=== PATIENT | female | born 1980 | race African-American/Black ===

== ENCOUNTER 2016-05-06 07:49 | Emergency (ER) | payer OTHER ==
[~2016-05-06] VITALS: Ht 157.5 cm; Wt 119.7 kg
[~2016-05-06 07:49] MED LIST: METFORMIN1000 MG PO; METFORMIN500 MG PO; MOTRIN 800MG T800 MG PO; NOVOLIN-N1000 UNITS IJ; PRENATAL1 TA2 PO
[2016-05-06] MEDS ORDERED: VITAMIN D250000 UNIT PO (09:05)
[2016-05-06] MEDS ORDERED: LIDOCAINE1 EACH TOP (09:05)
[2016-05-06] MEDS ORDERED: FERRALET 90 TA1 EACH PO (09:05)
[2016-05-06] MEDS ORDERED: AMOX-CLAV 500-1 EACH PO (09:05)
[2016-05-06] MEDS ORDERED: VOLTAREN100 GM TOP (09:06)
--- NOTE | 2016-05-06 09:20 | ED UPPER/LOWER EXTREMITY COMPL ---
History of Present Illness General Chief Complaint: Hand or Wrist Injury Stated Complaint: RT WRIST PAIN Source: patient Exam Limitations: no limitations Vital Signs & Intake/Output Vital Signs & Intake/Output Vital Signs Date Time Temp Pulse Resp B/P Pulse O2 O2 Flow FiO2 Ox Delivery Rate 05/06 1136 98.2 72 17 150/88 100 Room Air 05/06 0846 98.4 77 18 153/106 99 Room Air Allergies Coded Allergies: NO KNOWN ALLERGIES (05/06/16) Reconcile Medications Amoxicillin/Potassium Clav (Amox-Clav 500-125 MG Tablet) 500 MG-125 MG TABLET 1 TAB PO BID DENTAL (Reported) Diclofenac Sodium (Voltaren) 1 % GEL..GRAM. 1 GM TOP 4 TIMES/DAY PRN KNEE PAIN (Reported) apply to affected area(s) Ergocalciferol (Vitamin D2) (Vitamin D2) 50,000 UNIT CAPSULE 1 CAP PO QW SUPPLEMENT (Reported) Ibuprofen 600 MG TABLET 1 TAB PO TID PRN pain with food Iron Carb,Gl/FA/B12/C/Docusate (Ferralet 90 Tablet) 90 MG-1 MG-12 MCG-120 MG-50 MG TABLET 1 TAB PO DAILY SUPPLEMENT (Reported) Lidocaine 5 % ADH..PATCH 1 PAT TOP DAILY NEEDED PAIN (Reported) METFORMIN HCL (Metformin) 500 MG TAB 500 MG PO 1/2H BEFOR/BREAKFAST DIABETES (Reported) Tramadol HCl/Acetaminophen (Ultracet Tablet) 37.5 MG-325 MG TABLET 1 TAB PO TIDPRN PRN pain Yibuprofen (Motrin 800MG Tab) 800 MG TAB 800 MG PO Q6P PRN PAIN SCALE 4-6 Triage Note: C/O R WRIST PAIN SINCE YESTERDAY, STATES SHE BANGED IT ON A WOODEN DOOR. PAIN UNRELIEVED WITH MOTRIN OR ICE. Triage Nurses Notes Reviewed? yes : No Patient currently breastfeeds: No HPI: R HAND AND WRIST INJURY, STRUCK DOOR LAST NIGTH HER BOYFRIEND WAS FALLING, PAIN IN THE HAND AND WRIST, WORSE WITH EXTENSION AND PAIN WITH ROM OF THE 4,5 DIGITS. PAIN IS DORSUM. NO SWELLING, TOOK IBUPROFEN AND ICED WITHOUT RELIEF. NO OTHER INJURIES, NO PREVIOUS INJURY, SHE IS RHD. (JOSSIE HAZEL) Past History Travel History Traveled to [place] past 21 day No Medical History Any Pertinent Medical History? see below for history Endocrine: diabetes Surgical History Surgical History: non-contributory Psychosocial History What is your primary language Frisian Tobacco Use: Never used ETOH Use: occasional use Family History Hx Contributory? No (JOSSIE HAZEL) Review of Systems Review of Systems Constitutional: Reports: see HPI. EENTM: Reports: no symptoms. Respiratory: Reports: no symptoms. Cardiovascular: Reports: no symptoms. Gastrointestinal/Abdominal: Reports: no symptoms. Genitourinary: Reports: no symptoms. Musculoskeletal: Reports: see HPI. Skin: Reports: no symptoms. Neurological/Psychological: Reports: no symptoms. Hematologic/Endocrine: Reports: no symptoms. Immunological: Reports: no symptoms. All Other Systems: Reviewed and Negative (JOSSIE HAZEL) Physical Exam Physical Exam General Appearance: well developed/nourished Comments: Well-developed well-nourished no apparent distress. HEENT: Atraumatic, extraocular motion intact Neck: Supple, no lymphadenopathy Back: Nontender Respiratory: No respiratory distress Extremities: No edema, full range of motion Neuro: Alert and oriented x3 Psych: Mood affect normal, normal memory normal judgment. Skin: Warm and dry, no rash on exposed skin Right upper extremity, right hand and wrist, no swelling no ecchymosis, range of motion is limited secondary to pain in the wrist and pronation and supination. She has tenderness over the radial styloid region and TFCC region. There is no clicking. No snuffbox tenderness. No hand or finger tenderness. (JOSSIE HAZEL) Progress Differential Diagnosis: arterial insufficiency, cellulitis, CHF, compartment syndrome, contusion, dislocation, DVT, fracture, gout, septic arthritis, sprain, tendon injury Plan of Care: Orders Procedure Date/time Status Durable Medical Equipment 05/06 1026 Active Diagnostic Imaging: Viewed by Me: Radiology Read. Discussed w/RAD: Radiology Read. Comments: PATIENT: PHU TAYLOR PRESENT AGE: 35 PATIENT ACCOUNT NO: [id number] : 81 LOCATION: [facility] ORDERING PHYSICIAN: JOSSIE GOOD SERVICE DATE: 05/06/16 EXAM TYPE: RAD - XRY-WRIST COMPLETE-RIGHT EXAMINATION: XR WRIST, RIGHT CLINICAL INFORMATION: Pain after injury. COMPARISON: None TECHNIQUE: AP, lateral, and oblique views of the right wrist. FINDINGS: The bones and soft tissues are normal. No fracture. Alignment is anatomic with normal joint spaces. No erosions or abnormal soft tissue calcifications. IMPRESSION: No acute fracture or dislocation right wrist. Especially there is no ulnar styloid process fractures seen. DICTATED BY: MAREK OLEA MD DATE/TIME DICTATED:05/06/161006 INDIRECT FIRE INFANTRYMAN:LIONEL X-rays unremarkable we'll place patient in a cock-up splint for comfort, likely wrist sprain. NSAIDs and pain medication provided and orthopedic follow-up if no better in one to 2 weeks. (JOSSIE HAZEL) Departure Departure Disposition: HOME OR SELF CARE Condition: Stable Clinical Impression Primary Impression: Right wrist sprain Qualifiers: Encounter type: initial encounter Qualified Code: S63.501A - Unspecified sprain of right wrist, initial encounter Referrals: [facility] (PCP/Family) TANA AGUILAR MD Additional Instructions: Rest, ice, use splint for comfort Motrin and ultram as needed for pain. Gradual return to activity as tolerated. Follow-up with orthopedist in one to 2 weeks if no better. Departure Forms: Customer Survey General Discharge Information Prescriptions: Current Visit Scripts Tramadol HCl/Acetaminophen (Ultracet Tablet) 1 TAB PO TIDPRN PRN pain #10 TAB Ibuprofen 1 TAB PO TID PRN pain #30 TAB with food (JOSSIE HAZEL) PA/IC DESIGN MANAGER Co-Sign Statement Statement: ED Attending supervision documentation- [] I saw and evaluated the patient. I have also reviewed all the pertinent lab results and diagnostic results. I agree with the findings and the plan of care as documented in the PA's/IC DESIGN MANAGER's documentation. x I have reviewed the ED Record and agree with the PA's/IC DESIGN MANAGER's documentation. [] Additions or exceptions (if any) to the PAs/IC DESIGN MANAGER's note and plan are summarized below: [] (DOMINICK REDDY,ALEX)
--- NOTE | 2016-05-06 10:11 | RADIOLOGY REPORT ---
EXAMINATION: XR WRIST, RIGHT CLINICAL INFORMATION: Pain after injury. COMPARISON: None TECHNIQUE: AP, lateral, and oblique views of the right wrist. FINDINGS: The bones and soft tissues are normal. No fracture. Alignment is anatomic with normal joint spaces. No erosions or abnormal soft tissue calcifications. IMPRESSION: No acute fracture or dislocation right wrist. Especially there is no ulnar styloid process fractures seen.
[2016-05-06] MEDS ORDERED: IBUPROFEN600 M1 PO (11:05)
[2016-05-06] MEDS ORDERED: ULTRACET TABLE1 EACH PO (11:05)
[2016-05-06 11:36] VITALS: BP 150/88
== END 2016-05-06 12:01 ==
LOC: ERH 07:49
DX: S63.501A Unspecified sprain of right wrist, initial encounter (principal); W22.8XXA Striking against or struck by other objects, initial encounter
CPT/HCPCS: 73110-RT